=== PATIENT | female | born 1985 | race Caucasian/White ===

== ENCOUNTER 2019-11-13 20:09 | Inpatient (IN) | payer BC ==
[~2019-11-13 20:09] MED LIST: Bupivacaine 0.25% 10 ML SDV ONE
[2019-11-13] MEDS ORDERED: Ampicillin 2 GM in Sodium Chloride 0.9% 100 ML IV ONE (20:48)
[2019-11-13] MEDS ORDERED: Nalbuphine 10 MG/ML Syringe IVPUSH PRN (20:48)
[2019-11-13] MEDS ORDERED: Sodium Chloride 0.9% 10 ML Syringe FLUSH PRN (20:48)
[2019-11-13] MEDS ORDERED: Oxytocin/Lactated Ringers 10 UNIT/1,000 ML BAG IV SCH ×2 (21:00)
--- NOTE | 2019-11-13 21:28 | PCM.LDHP ---
L&D History of Present Illness - General Date of Service: 11/13/19 Admit Problem/Dx: Patient Status Order with Admit Dx/Problem 11/13/19 20:49 Patient Status [ADT] Routine Admission Diagnosis/Problem Admission Diagnosis/Problem 11/13/19 21:13 Wilda is a 34-year-old 7 para 312 4 white female with an estimated gestational age of 9-0/7 weeks with an LOUIS of 11/20/2019 was admitted to labor and delivery on the evening of 11/13/2019 in active labor with progressive cervical change. Source of Information: Patient History Limitations: Reports: No Limitations - History of Present Illness Introduction:: Wilda is a 34-year-old 7 para 312 4 white female with an estimated gestational age of 9-0/7 weeks with an LOUIS of 11/20/2019 was admitted to labor and delivery on the evening of 11/13/2019 in active labor with progressive cervical change. Membranes are intact. heart tones are reassuring. Contractions every 2-5 minutes. Cervix is made progressive change and is now presently 3 cm with the baby in a -3 station. Bag ferro is intact. 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 Her LOUIS is 11/20/2019 as based upon a LMP of 02/13/2019 and supported by 3 ultrasounds done on 03/31/2019, 2018 and 07/15/2019. Patient had normal menarche at approximately age 12. Cycles come on a fairly regular basis. Not using any control at the time conception. Past obstetric history includes the followin. Female infant born 02/17/2009 at 33 weeks gestational age after 26 hours of labor. 4 lbs. 11 oz. born via normal spontaneous vaginal deliveryhad epidural for labor analgesia. [facility] at [facility] in [place]. Patient had premature rupture membranes with that . Child's name is Mali. 2. Female infant born at 08/07/2010 at 38 weeks gestational age after 23 hours of labor. . Epidural for analgesia. Born in [place]. Child's name is Desire. 3. Female born at 09/02/2015 at 40 weeks gestational age after 30 hours of labor7 lbs. 13 oz.vacuum extraction delivery. Baby born in [place]. Child' s name is Magda. 4. Female infant born 09/11/2017 at 36-6/7 weeks gestational age after 24 hours of labor. weight is 7 lbs. 5 oz. Baby born via normal spontaneous vaginal delivery. Epidural for analgesia. Born in [place]. Child's name is Fidelia. 5. Miscarriage on 03/12/2018 at 10 weeks gestation with natural passage of . 6. Miscarriage on 08/19/2018 at 6 weeks gestational age with natural passage of . course: Patient's first visit was on 04/28/2019 at approximately 10 weeks gestational age. Weight gain was from 253.8 pounds to 284 pounds for approximately 30 pound increase. Vital signs remained stable throughout the course. Fundal height growth was somewhat ahead of schedule with a fundal height of 42 cm at last visit at 38 weeks. Patient had a group B strep positive test at the time of her first visit. She has history of anxiety. She declined genetic testing. She declines STI testing. [place] depression screening score on 07/25/2019 was 7/30. Risks include history of miscarriage 2, age of 34, obesity, term rupture membranes/ delivery. Patient desires epidural. She plans on breast-feeding. Immunization has included influenza vaccination on 08/22/2019 and T-dap immunization on 08/22. She is rubella immune. Laboratory testing and shows blood to be B+ with a negative and by screen. First hemoglobin was 12.7 g/dL. Platelets are 297,000. She is rubella immune. Urine culture showed group B strep positive status. Hepatitis B surface antigen and HIV assays were negative and declined respectively. Myringotomy acid both declined. Second trimester labs showed hemoglobin 11.4 g/ dL. Platelets are 275,000. Diabetic screening test was 84normal. Group B strep culture was positive. Allergies: 1. Seafood causes anaphylaxis 2. Adhesive tape 3. Mastisol adhesive ligament causes hives and rash Medications: 1. Aspirin 81 mg by mouth daily 2. vitamins daily Family history: Father and mother are alive and well. Patient has 3 sisters who are alive and well. Maternal grandmother is secondary to ovarian cancer at age 80. Maternal grandfather some with some type of cancer which is unknown to the patient. Paternal grandmother is alive and well. Paternal grandfather is secondary to stroke. No female cancers otherwise noted. No , anesthesia, bleeding or blood clotting problems noted in the family. Social history: The patient is . is Ishan Barahona. 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 She lives in [place] with her and family. She does not use any significant loss of alcohol, drugs or tobacco. She is a college graduate. Past medical history: 1. Vaginal delivery 4 with one vacuum extraction delivery and 1 delivery secondary to premature rupture of membranes. 2. History of anxiety. 3. Mildly abnormal Paps or 2015. 4. Basal cell carcinoma. Past surgical history: 1. Laparoscopic cholecystectomy 2. Jaw surgery 2002. Basal cell carcinoma removal. Review of systems: In general patient has no complaints. He is having contractions. Skin: Negative Lungs: No infectious symptoms or shortness of breath Cardiovascular: No chest pain or exercise intolerance Breasts: No lumps, changes in size, pain, dimpling, discharge or axillary or supraclavicular concerns. GI: Negative : Changes associated with . Musculoskeletal: Negative Neurological: Negative In general the patient is well-developed, well-nourished, pleasant female of stated age in no acute distress. Skin is warm dry without lesions. Vital signs on last evaluation in clinic show blood pressure 128/74, weight 284 pounds with pre weight 253.8 pounds. Height is 5 feet 5. Pregravid body mass index is 42.6. HEENT, neck and back within normal limits. Lungs are clear with good breath sounds in all lung sharp. Cardiovascular exam shows regular and rhythm without murmurs. Abdomen is 2 and last fundal height at 42 cm with baby in vertex presentation by Adan maneuvers. Genital exam per digital exam on last dilution clinic showed cervix to be 2 cm, 80% effaced, soft, mid position, -3 station. By nurse's evaluation this time the cervix is changed 3 cm but is still very high at -3+ or above station. Extremities and neurological exam are grossly within normal limits. - Related Data Allergies/Adverse Reactions: Allergies Allergy/AdvReac Type Severity Reaction Status Date / Time shellfish derived Allergy Anaphylactic Verified 09/11/16 01:56 Shock Home Medications: Home Meds PNV No.66/Iron,Carbonyl/FA/DHA [R- Ob Softgel] 1 tab PO DAILY 08/19/14 [ History] Docusate Sodium [Colace] 100 mg PO DAILY 04/11/16 [History] Doxylamine Succinate [Unisom] 25 mg PO BEDTIME 04/11/16 [History] Ondansetron HCl [Zofran] 4 mg PO Q6H PRN 04/11/16 [History] Ranitidine [Zantac] 150 mg PO DAILY 04/11/16 [History] Sertraline HCl 100 mg PO DAILY 04/11/16 [History] Vitamin B6-pyridOXINE 100 mg PO DAILY 04/11/16 [History] oxyCODONE HCl/Acetaminophen [Percocet 5-325 mg Tablet] 5 - 325 mg PO Q6H PRN 10/27 [History] Ibuprofen [IJD: Ibuprofen] 600 mg PO Q4H PRN #30 tablet 09/13/16 [Rx] Past Medical History HEENT History: Reports: Impaired Vision Other HEENT History: Wears glasses Cardiovascular History: Reports: None Respiratory History: Reports: Asthma, Other (See Below) Other Respiratory History: resolved at this time. Gastrointestinal History: Reports: Other (See Below) Other Gastrointestinal History: bloody stools Genitourinary History: Reports: Renal Calculus EMS DRIVER History: Reports: Dysfunctional Uterine Bleeding, Musculoskeletal History: Reports: Arthritis, Back Pain, Chronic Neurological History: Reports: None Psychiatric History: Reports: Anxiety Endocrine/Metabolic History: Reports: Obesity/BMI 30+ (BMI 47.3) Dermatologic History: Reports: Melanoma - Infectious Disease History Infectious Disease History: Reports: Chicken Pox - Past Surgical History HEENT Surgical History: Reports: Oral Surgery, Other (See Below) Social & Family History - Family History Family Medical History: Noncontributory - Caffeine Use Caffeine Use: Reports: Coffee, Soda Other Caffeine Use: average 1 caffeinated beverage per day H&P Review of Systems - Review of Systems: Review Of Systems: See Below L&D Exam - Exam Exam: See Below Problem List Initiated/Reviewed/Updated: Yes Orders Last 24hrs: Active Orders 24 hr Category Date Time Status Patient Status [ADT] Routine ADT 11/13/19 20:49 Active Activity as Tolerated [RC] PFP Care 11/13/19 20:48 Active Communication Order [RC] ASDIRECTED Care 11/13/19 20:48 Active Heart Tones [RC] ASDIRECTED Care 11/13/19 20:49 Active Non Stress Test [RC] PER UNIT ROUTINE Care 11/13/19 20:48 Active Notify Provider [RC] PFP Care 11/13/19 20:48 Active Notify Provider [RC] PRN Care 11/13/19 20:48 Active Peripheral IV Care [RC] . DIRECTED Care 11/13/19 20:49 Active Vital Signs [RC] PER UNIT ROUTINE Care 11/13/19 20:48 Active Regular Diet [DIET] Diet 11/13/19 Breakfast Active CBC WITH AUTO DIFF [HEME] Stat Lab 11/13/19 20:48 Ordered RAPID PLASMA REAGIN,RPR [CHEM] Stat Lab 11/13/19 20:48 Ordered Ampicillin 1 gm Med 11/14/19 01:00 Active Sodium Chloride 0.9% [Normal Saline] 100 ml IV Q4H Ampicillin 2 gm Med 11/13/19 20:48 Active Sodium Chloride 0.9% [Normal Saline] 100 ml IV ONETIME Lactated Ringers [Ringers, Lactated] 1,000 ml Med 11/13/19 21:00 Active IV ASDIRECTED Nalbuphine [Nubain] Med 11/13/19 20:48 Active 10 mg IVPUSH Q2H PRN Oxytocin/Lactated Ringers [Pitocin in LR 10 Units/1,000 Med 11/13/19 21:00 Active ML] 10 unit in 1,000 ml IV .CONTINUOUS Oxytocin/Lactated Ringers [Pitocin in LR 10 Units/1,000 Med 11/13/19 21:00 Active ML] 10 unit in 1,000 ml IV TITRATE Sodium Chloride 0.9% [Saline Flush] Med 11/13/19 20:48 Active 10 ml FLUSH ASDIRECTED PRN Electronic Heart Tones Ext w TOCO [WOMSER] Oth 11/13/19 20:48 Ordered Routine Electronic Heart Tones Internal [WOMSER] Per Unit Oth 11/13/19 20:48 Ordered Routine Peripheral IV Insertion Adult [OM.PC] Routine Oth 11/13/19 20:48 Ordered Resuscitation Status Routine Resus Stat 11/13/19 20:48 Ordered Medication Orders Ampicillin Sodium 2 gm/ Sodium (Chloride) 100 mls @ 200 mls/hr IV ONETIME ONE Stop: 11/13/19 21:17 Ampicillin Sodium 1 gm/ Sodium (Chloride) 100 mls @ 200 mls/hr IV Q4H IMER Lactated Ringer's (Ringers, Lactated) 1,000 mls @ 100 mls/hr IV ASDIRECTED IMER Oxytocin/Lactated Ringer's (Pitocin In Lr 10 Units/1,000 Ml) 10 unit in 1,000 mls @ 12 mls/hr IV TITRATE IMER; Protocol Oxytocin/Lactated Ringer's (Pitocin In Lr 10 Units/1,000 Ml) 10 unit in 1,000 mls @ 500 mls/hr IV .CONTINUOUS IMER Nalbuphine HCl (Nubain) 10 mg IVPUSH Q2H PRN PRN Reason: Pain Sodium Chloride (Saline Flush) 10 ml FLUSH ASDIRECTED PRN PRN Reason: Keep Vein Open Assessment/Plan Comment:: 1. 39-0/7 week intrauterine , early active labor with progressive cervical change. 2. Group B strep positive status per urine culture in 3. History risk factors for the include the following: History of rupture membranes and delivery at 34 weeks, obesity, history of group B strep positive status, history of urge 2. 4. Rubella status is positive. Patient is received her T Dap and her influenza immunization on 08/22/2019. 4. Patient desiring epidural in labor 5. Patient plans to breast-feed. Plan: 1. Monitor labor and address progressive change. If able to rupture membranes a later time we'll do so. 2. Group B strep prophylaxis with ampicillin per protocol. 3. Support breast-feeding decision 4. Epidural when necessary patient in labor 5. CBC and RPR upon admission.
[2019-11-13] MEDS: Lactated Ringers 1,000 ML IV SCH ×2 (22:02→23:47)
[2019-11-13] MEDS ORDERED: fentaNYL 100 MCG/2 ML SDV EPIDUR PRN (23:39)
[2019-11-13] MEDS ORDERED: Bupivacaine/fentaNYL/NS 100 ML Bag EPIDUR PRN (23:39)
[2019-11-13] MEDS ORDERED: diphenhydrAMINE 50 MG/ML SDV IVPUSH PRN (23:39)
[2019-11-13] MEDS ORDERED: ePHEDrine 50 MG/ML SDV IVPUSH PRN (23:39)
--- NOTE | 2019-11-14 00:12 | PCM.PREANE ---
Preanesthetic Assessment - Procedure Proposed Procedure: epidural - Anesthesia/Transfusion/Family Hx Anesthesia History: Prior Anesthesia Without Reaction Family History of Anesthesia Reaction: No Transfusion History: No Prior Transfusion(s) - Review of Systems General: No Symptoms Pulmonary: No Symptoms Cardiovascular: No Symptoms Gastrointestinal: Abdominal Pain (labor) Neurological: Numbness (bilateral wrists - hands) Other: Reports: None - Physical Assessment Vital Signs: Last Vital Signs Temp 36.8 C 11/13/19 20:37 Pulse 74 11/13/19 20:37 Resp 18 11/13/19 20:37 BP 147/77 H 11/13/19 20:37 Pulse Ox 99 11/13/19 20:37 Height: 1.65 m Weight: 131.088 kg ASA Class: 2 Mental Status: Alert & Oriented x3 Airway Class: Mallampati = 2 Dentition: Reports: Normal Dentition Thyro-Mental Finger Breadths: 2 Mouth Opening Finger Breadths: 2 ROM/Head Extension: Full Lungs: Clear to Auscultation, Normal Respiratory Effort Cardiovascular: Regular Rate, Regular Rhythm - Lab Values: Laboratory Last Values WBC 10.76 K/mm3 (3.98-10.04) H 11/13/19 21:20 RBC 4.06 M/mm3 (3.98-5.22) 11/13/19 21:20 Hgb 11.6 gm/dl (11.2-15.7) 11/13/19 21:20 Hct 35.8 % (34.1-44.9) 11/13/19 21:20 MCV 88.2 fl (79.4-94.8) 11/13/19 21:20 MCH 28.6 pg (25.6-32.2) 11/13/19 21:20 MCHC 32.4 g/dl (32.2-35.5) 11/13/19 21:20 RDW Std Deviation 44.2 fL (36.4-46.3) 11/13/19 21:20 Plt Count 225 K/mm3 (182-369) 11/13/19 21:20 MPV 10.9 fl (9.4-12.3) 11/13/19 21:20 Neut % (Auto) 68.4 % (34.0-71.1) 11/13/19 21:20 Lymph % (Auto) 23.0 % (19.3-51.7) 11/13/19 21:20 Banks % (Auto) 7.3 % (4.7-12.5) 11/13/19 21:20 Eos % (Auto) 0.8 (0.7-5.8) 11/13/19 21:20 Baso % (Auto) 0.1 % (0.1-1.2) 11/13/19 21:20 Neut # (Auto) 7.36 K/mm3 (1.56-6.13) H 11/13/19 21:20 Lymph # (Auto) 2.47 K/mm3 (1.18-3.74) 11/13/19 21:20 Banks # (Auto) 0.79 K/mm3 (0.24-0.36) H 11/13/19 21:20 Eos # (Auto) 0.09 K/mm3 (0.04-0.36) 11/13/19 21:20 Baso # (Auto) 0.01 K/mm3 (0.01-0.08) 11/13/19 21:20 RPR Non-reactive (NONREACTIVE) 11/13/19 21:20 - Allergies Allergies/Adverse Reactions: Allergies Allergy/AdvReac Type Severity Reaction Status Date / Time shellfish derived Allergy Anaphylactic Verified 09/11/16 01:56 Shock - Anesthesia Plan Pre-Op Medication Ordered: None - Acknowledgements Anesthesia Type Planned: Epidural Pt an Appropriate Candidate for the Planned Anesthesia: Yes Alternatives and Risks of Anesthesia Discussed w Pt/Guardian: Yes Pt/Guardian Understands and Agrees with Anesthesia Plan: Yes PreAnesthesia Questionnaire HEENT History: Reports: Impaired Vision Other HEENT History: Wears glasses Cardiovascular History: Reports: None Respiratory History: Reports: Asthma, Other (See Below) Other Respiratory History: resolved at this time. 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: Reports: Dysfunctional Uterine Bleeding, Musculoskeletal History: Reports: Arthritis, Back Pain, Chronic Neurological History: Reports: None Psychiatric History: Reports: Anxiety Endocrine/Metabolic History: Reports: Obesity/BMI 30+ (BMI 47.3) Dermatologic History: Reports: Melanoma - Infectious Disease History Infectious Disease History: Reports: Chicken Pox - Past Surgical History HEENT Surgical History: Reports: Oral Surgery, Other (See Below) - SUBSTANCE USE Smoking Status *Q: Never Smoker Second Hand Smoke Exposure: No Recreational Drug Use History: No - HOME MEDS Home Medications: Home Meds PNV No.66/Iron,Carbonyl/FA/DHA [R- Ob Softgel] 1 tab PO DAILY 08/19/14 [ History] Docusate Sodium [Colace] 100 mg PO DAILY 04/11/16 [History] Doxylamine Succinate [Unisom] 25 mg PO BEDTIME 04/11/16 [History] Ondansetron HCl [Zofran] 4 mg PO Q6H PRN 04/11/16 [History] Ranitidine [Zantac] 150 mg PO DAILY 04/11/16 [History] Sertraline HCl 100 mg PO DAILY 04/11/16 [History] Vitamin B6-pyridOXINE 100 mg PO DAILY 04/11/16 [History] oxyCODONE HCl/Acetaminophen [Percocet 5-325 mg Tablet] 5 - 325 mg PO Q6H PRN 10/27 [History] Ibuprofen [IJD: Ibuprofen] 600 mg PO Q4H PRN #30 tablet 09/13/16 [Rx] - CURRENT (IN HOUSE) MEDS Current Meds: Current Medications Diphenhydramine HCl (Benadryl) 25 mg IVPUSH Q6H PRN PRN Reason: Itching Ephedrine Sulfate (Ephedrine Sulfate) 5 mg IVPUSH ASDIRECTED PRN PRN Reason: HYPOTENTSION Fentanyl (Sublimaze) 100 mcg EPIDUR Q3H PRN PRN Reason: Pain Last Admin: 11/13/19 23:48 Dose: 100 mcg Fentanyl/Bupivacaine HCl (Fentanyl/Bupivacaine/Ns 2 Mcg-0.125% 100 Ml) 1 ml EPIDUR CONTINUOUS PRN PRN Reason: Pain Last Admin: 11/13/19 23:53 Dose: 100 ml Ampicillin Sodium 1 gm/ Sodium (Chloride) 100 mls @ 200 mls/hr IV Q4H IMER Lactated Ringer's (Ringers, Lactated) 1,000 mls @ 100 mls/hr IV ASDIRECTED IMER Last Admin: 11/13/19 23:47 Dose: 100 mls/hr Oxytocin/Lactated Ringer's (Pitocin In Lr 10 Units/1,000 Ml) 10 unit in 1,000 mls @ 12 mls/hr IV TITRATE IMER; Protocol Oxytocin/Lactated Ringer's (Pitocin In Lr 10 Units/1,000 Ml) 10 unit in 1,000 mls @ 500 mls/hr IV .CONTINUOUS IMER Nalbuphine HCl (Nubain) 10 mg IVPUSH Q2H PRN PRN Reason: Pain Sodium Chloride (Saline Flush) 10 ml FLUSH ASDIRECTED PRN PRN Reason: Keep Vein Open Discontinued Medications Ampicillin Sodium 2 gm/ Sodium (Chloride) 100 mls @ 200 mls/hr IV ONETIME ONE Stop: 11/13/19 21:17 Last Admin: 11/13/19 22:03 Dose: 200 mls/hr
[2019-11-14] MEDS ORDERED: Ampicillin 1 GM in Sodium Chloride 0.9% 100 ML IV SCH (01:00)
[2019-11-14] MEDS: Ampicillin 1 GM in Sodium Chloride 0.9% 100 ML IV SCH ×3 (02:09→13:46)
[2019-11-14] MEDS: Lactated Ringers 1,000 ML IV SCH ×2 (02:10→06:37)
--- NOTE | 2019-11-14 09:18 | PCM.SN ---
- Free Text/Narrative Note: Wilda is a 34-year-old 7 para 312 4 white female with an estimated gestational age of 9-0/7 weeks with an LOUIS of 11/20/2019 was admitted to labor and delivery on the evening of 11/13/2019 in active labor with progressive cervical change. Patient achieved complete cervical dilation by approximately 0745 hrs. on 11/14/2019. She pushed until approximately 0757 hrs. at which time she delivered a viable, powers, female with Apgars of 9 and 9, weight 3680 g (8 pounds 1.8 ounces), a length 21 inches in a direct occiput posterior position.The delivery time was 0757 hrs. on 11/14/2019. Baby's nose and mouth were bulb suctioned and baby was placed on mom's abdomen. Pitocin was increased to facilitate an increase uterine tone and decrease likelihood of bleeding. A first-degree perineal laceration was repaired with a single [id number] suture. Epidural analgesia was used for perineal anesthesia for the repair. Patient tolerated this well area Cord blood was obtained. The umbilical cord had 3 vessels present within it. The placenta delivered at 0802 hrs. in a Hanks presentation, appeared intact and complete and was discarded per patient desire. Estimated blood loss was 200 mL. Patient plans to breast-feed. Condition: Good.
[2019-11-14] MEDS ORDERED: Acetaminophen 325 MG Tab PO PRN (10:50)
[2019-11-14] MEDS ORDERED: Witch Hazel Medicated Pads 40/Jar TOP PRN (10:50)
[2019-11-14] MEDS ORDERED: Benzocaine/Menthol 20%-0.5% Spray 56 GM Canister TOP PRN (10:50)
[2019-11-14] MEDS: Ibuprofen 600 MG Tab PO PRN ×3 (10:58→20:22)
[2019-11-14] MEDS: Docusate Sodium 100 MG Cap PO PRN (10:58)
[2019-11-15] MEDS: Docusate Sodium 100 MG Cap PO PRN ×2 (03:17→14:35)
[2019-11-15] MEDS: Ibuprofen 600 MG Tab PO PRN ×3 (03:17→14:32)
--- NOTE | 2019-11-15 07:54 | PCM48HPAN ---
Post Anesthesia Note - EVALUATION WITHIN 48HRS OF ANESTHETIC Vital Signs in Normal Range: Yes Patient Participated in Evaluation: Yes Respiratory Function Stable: Yes Airway Patent: Yes Cardiovascular Function Stable: Yes Hydration Status Stable: Yes Pain Control Satisfactory: Yes Nausea and Vomiting Control Satisfactory: Yes Mental Status Recovered: Yes Vital Signs: Last Vital Signs Temp 36.3 C 11/15/19 03:10 Pulse 70 11/15/19 03:10 Resp 15 11/15/19 03:10 BP 133/84 11/15/19 03:10 Pulse Ox 97 11/15/19 03:10
[2019-11-15] MEDS ORDERED: Prenatal Multivitamin with Calcium/Folic Acid/Iron Tab PO SCH (09:00)
--- NOTE | 2019-11-15 09:19 | PCM.DCSUM1 ---
Discharge Summary - Hospital Course Free Text/Narrative:: Wilda is a 34-year-old 7 para 312 4 white female with an estimated gestational age of 9-0/7 weeks with an LOUIS of 11/20/2019 was admitted to labor and delivery on the evening of 11/13/2019 in active labor with progressive cervical change. Patient achieved complete cervical dilation by approximately 0745 hrs. on 11/14/2019. She pushed until approximately 0757 hrs. at which time she delivered a viable, powers, female infant with Apgars of 9 and 9, weight 3680 g (8 pounds 1.8 ounces), a length 21 inches in a direct occiput posterior position.The delivery time was 0757 hrs. on 11/14/2019. Baby's nose and mouth were bulb suctioned and baby was placed on mom's abdomen. Pitocin was increased to facilitate an increase uterine tone and decrease likelihood of bleeding. A first-degree perineal laceration was repaired with a single [id number] suture. Epidural analgesia was used for perineal anesthesia for the repair. Patient tolerated this well area Cord blood was obtained. The umbilical cord had 3 vessels present within it. The placenta delivered at 0802 hrs. in a Hanks presentation, appeared intact and complete and was discarded per patient desire. Estimated blood loss was 200 mL. Patient plans to breast-feed. Postterm patient has done well. She is voiding without problems, has minimal lochia, is ambulating without concerns. She is desiring discharge home. Condition: Good. Diagnosis: Stroke: No - Discharge Data Discharge Date: 11/15/19 Discharge Disposition: Home, Self-Care 01 Condition: Good - Referral to Home Health Primary Care Physician: Bogdan Arriola MD - Patient Instructions Diet: Regular Diet as Tolerated (Nursing diet with increased calories and calcium as recommended) Activity: As Tolerated (No intercourse or tampons until bleeding resolves) Driving: May Drive Today Showering/Bathing: May Shower (May take a bath) Notify Provider of: Fever, Increased Pain, Swelling and Redness, Nausea and/or Vomiting - Discharge Plan Home Medications: Home Meds PNV No.66/Iron,Carbonyl/FA/DHA [R-Akash Ob Softgel] 1 tab PO DAILY 08/19/14 [ History] Acetaminophen [Tylenol] 650 mg PO Q4H PRN tablet 11/15/19 [Rx] Ibuprofen [Motrin] 600 mg PO Q4H PRN tablet 11/15/19 [Rx] Referrals: Bogdan Arriola MD [Primary Care Provider] - (Return to clinicDr. Arriola or Diane brock, nurse practitioner-2 weeks.) - Discharge Summary/Plan Comment DC Time >30 min.: No Discharge Summary/Plan Comment: Discharge instructions: 1. Discharge home 2. Diet, activity and follow-up discussed with patient. Recommend nursing diet with increased calories and calcium. 3. Precautions given concern increased pain, bleeding, temperature, signs/ symptoms of DVT/PE. 4. Medications per home medication was printed, discussed with and given to the patient. 5. Return to clinic-Dr. Arriola[facility] in 2 weeks. Diagnosis: Term -delivered Condition: Good - Patient Data Vitals - Most Recent: Last Vital Signs Temp 36.3 C 11/15/19 03:10 Pulse 70 11/15/19 03:10 Resp 15 11/15/19 03:10 BP 133/84 11/15/19 03:10 Pulse Ox 97 11/15/19 03:10 Weight - Most Recent: 131.088 kg I&O - Last 24 hours: Intake & Output 11/14/19 11/15/19 11/15/19 22:59 06:59 14:59 Intake Total 751 Balance 751 Med Orders - Current: Current Medications Acetaminophen (Tylenol) 650 mg PO Q4H PRN PRN Reason: mild pain or fever Benzocaine/Menthol (Dermoplast Pain Relief [place]) 0 gm TOP ASDIRECTED PRN PRN Reason: Perineal Comfort Measure Last Admin: 11/14/19 11:00 Dose: 1 can Docusate Sodium (Colace) 100 mg PO BID PRN PRN Reason: Constipation Last Admin: 11/15/19 03:17 Dose: 100 mg Ibuprofen (Motrin) 600 mg PO Q4H PRN PRN Reason: Mild pain or fever Last Admin: 11/15/19 09:08 Dose: 600 mg Prenat Multivit/Breaker Unit Assembler/Iron/Folic Ac ( Plus Iron) 1 each PO DAILY IMER Last Admin: 11/15/19 09:08 Dose: 1 each Wojciech Ferguson (Jimcks) 1 pad TOP ASDIRECTED PRN PRN Reason: Pain Last Admin: 11/14/19 11:00 Dose: 1 container Discontinued Medications Diphenhydramine HCl (Benadryl) 25 mg IVPUSH Q6H PRN PRN Reason: Itching Last Admin: 11/14/19 04:23 Dose: 25 mg Ephedrine Sulfate (Ephedrine Sulfate) 5 mg IVPUSH ASDIRECTED PRN PRN Reason: HYPOTENTSION Fentanyl (Sublimaze) 100 mcg EPIDUR Q3H PRN PRN Reason: Pain Last Admin: 11/13/19 23:48 Dose: 100 mcg Fentanyl/Bupivacaine HCl (Fentanyl/Bupivacaine/Ns 2 Mcg-0.125% 100 Ml) 1 ml EPIDUR CONTINUOUS PRN PRN Reason: Pain Last Admin: 11/13/19 23:53 Dose: 100 ml Ampicillin Sodium 2 gm/ Sodium (Chloride) 100 mls @ 200 mls/hr IV ONETIME ONE Stop: 11/13/19 21:17 Last Admin: 11/13/19 22:03 Dose: 200 mls/hr Ampicillin Sodium 1 gm/ Sodium (Chloride) 100 mls @ 200 mls/hr IV Q4H IMER Last Admin: 11/14/19 13:46 Dose: Not Given Lactated Ringer's (Ringers, Lactated) 1,000 mls @ 100 mls/hr IV ASDIRECTED IMER Last Admin: 11/14/19 06:37 Dose: 100 mls/hr Oxytocin/Lactated Ringer's (Pitocin In Lr 10 Units/1,000 Ml) 10 unit in 1,000 mls @ 12 mls/hr IV TITRATE IMER; Protocol Last Titration: 11/14/19 07:58 Dose: 999 mls/hr Oxytocin/Lactated Ringer's (Pitocin In Lr 10 Units/1,000 Ml) 10 unit in 1,000 mls @ 500 mls/hr IV .CONTINUOUS IMER Ampicillin Sodium 1 gm/ Sodium (Chloride) 100 mls @ 200 mls/hr IV Q4H IMER Last Admin: 11/14/19 13:46 Dose: Not Given Nalbuphine HCl (Nubain) 10 mg IVPUSH Q2H PRN PRN Reason: Pain Sodium Chloride (Saline Flush) 10 ml FLUSH ASDIRECTED PRN PRN Reason: Keep Vein Open
[2019-11-15 10:48] VITALS: BP 128/90; PULSE 88
== END 2019-11-15 15:25 | disposition home or self-care (01) | DRG 560 ==
LOC: JD.OBCHECK 20:09 → JD.OB 20:09 → JD.OBCHECK 20:48 → JD.OB 20:49 → OBSVTOIN 11-14 07:57 → JD.OB 11-14 07:58
PROVIDERS: ADMIT Obstetrics & Gynecology; ATTEND Obstetrics & Gynecology
PROC: 10E0XZZ Delivery of Products of Conception, External Approach (ICD-10-PCS; principal; 2019-11-14)
PROC: 0HQ9XZZ Repair Perineum Skin, External Approach (ICD-10-PCS; 2019-11-14)
PROC: 3E0R3BZ Introduction of Anesthetic Agent into Spinal Canal, Percutaneous Approach (ICD-10-PCS; 2019-11-14)
DX: O99.824 Streptococcus B carrier state complicating childbirth (principal); O99.344 Other mental disorders complicating childbirth; F41.9 Anxiety disorder, unspecified; M54.9 Dorsalgia, unspecified; G89.29 Other chronic pain; O70.0 First degree perineal laceration during delivery; O99.214 Obesity complicating childbirth; E66.9 Obesity, unspecified; Z85.820 Personal history of malignant melanoma of skin; Z3A.39 39 weeks gestation of pregnancy; Z88.8 Allergy status to other drugs, medicaments and biological substances; Z91.013 Allergy to seafood; Z79.82 Long term (current) use of aspirin; Z79.899 Other long term (current) drug therapy; Z37.0 Single live birth; Z90.49 Acquired absence of other specified parts of digestive tract
CPT/HCPCS: 01967; 36415; 51701; 51702; 59025; 59409; 85025; 86592; A9270-GY; J0290; J1200; J2590; J3010; J3490; J7050; J7120

== ENCOUNTER → 2020-08-23 | Day surgery (SDC) | payer BC ==
[~2020-08-23] MED LIST changes: +HYDROmorphone 0.5 MG/0.5 ML Syringe IVPUSH PRN; +Lactated Ringers 1,000 ML IV SCH; +Lidocaine 1% 30 ML SDV ONE; +Lidocaine 1% 4 ML ONE; +Lidocaine 1%/Sod Bicarbonate in NS 8.4% 1 ML Syringe IDERM PRN; +Midazolam 1 MG/ML 2 ML SDV ONE; +Ondansetron 4 MG/2 ML SDV IVPUSH PRN; +Ondansetron 4 MG/2 ML SDV ONE; +Propofol 200 MG/20 ML SDV ONE; +Sodium Chloride 0.9% 10 ML Syringe FLUSH PRN; +ePHEDrine 50 MG/ML SDV IVPUSH PRN; +fentaNYL 100 MCG/2 ML SDV IVPUSH PRN; +fentaNYL 100 MCG/2 ML SDV ONE
--- NOTE | 2020-08-23 09:26 | PCM.PREANE ---
Preanesthetic Assessment - Procedure Proposed Procedure: Left carpal tunnel release - Anesthesia/Transfusion/Family Hx Anesthesia History: Prior Anesthesia Without Reaction Family History of Anesthesia Reaction: No Transfusion History: No Prior Transfusion(s) - Review of Systems General: No Symptoms Pulmonary: No Symptoms, Other (asthma not used inhaler for "a very long time") Cardiovascular: No Symptoms Gastrointestinal: No Symptoms Neurological: Numbness (carpal tunnel) Other: Reports: None - Physical Assessment NPO Status Date: 08/22/20 NPO Status Time: 00:00 Height: 1.68 m Weight: 119.4 kg ASA Class: 2 Mental Status: Alert & Oriented x3 Airway Class: Mallampati = 1 Dentition: Reports: Normal Dentition, [place](s) Thyro-Mental Finger Breadths: 3 Mouth Opening Finger Breadths: 3 ROM/Head Extension: Full Lungs: Clear to Auscultation, Normal Respiratory Effort Cardiovascular: Regular Rate, Regular Rhythm - Lab Values: Laboratory Last Values MRSA (PCR) Negative 08/15/20 14:16 - Allergies Allergies/Adverse Reactions: Allergies Allergy/AdvReac Type Severity Reaction Status Date / Time adhesive Allergy Rash Verified 08/22/20 14:34 alcohol Allergy Rash Verified 08/22/20 14:34 [From Mastisol Adhesive] gum mastic Allergy Rash Verified 08/22/20 14:34 [From Mastisol Adhesive] methyl salicylate Allergy Rash Verified 08/22/20 14:34 [From Mastisol Adhesive] shellfish derived Allergy Anaphylactic Verified 08/22/20 14:34 Shock storax Allergy Rash Verified 08/22/20 14:34 [From Mastisol Adhesive] - Blood Blood Available: No Product(s) Available: None - Anesthesia Plan Pre-Op Medication Ordered: None - Acknowledgements Anesthesia Type Planned: MAC Pt an Appropriate Candidate for the Planned Anesthesia: Yes Alternatives and Risks of Anesthesia Discussed w Pt/Guardian: Yes Pt/Guardian Understands and Agrees with Anesthesia Plan: Yes PreAnesthesia Questionnaire HEENT History: Reports: Impaired Vision, Sinusitis Other HEENT History: Wears glasses, infected tooth, jaw surgery Cardiovascular History: Reports: Hypertension Respiratory History: Reports: Asthma, Other (See Below) Other Respiratory History: cough, bronchitis, asthma Gastrointestinal History: Reports: Chronic Diarrhea, GERD, Other (See Below) Other Gastrointestinal History: bloody stools Genitourinary History: Reports: Renal Calculus, Other (See Below) Other Genitourinary History: proteinuria 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: Dysfunctional Uterine Bleeding, , Spontaneous , Other (See Below) Other OB/BYN History: breast lump, amniotic fluid leaking, breast pain, , dysmenorrhea, placenta previa Musculoskeletal History: Reports: Arthritis, Back Pain, Chronic Neurological History: Reports: None Psychiatric History: Reports: Anxiety Endocrine/Metabolic History: Reports: Obesity/BMI 30+, Other (See Below) Other Endocrine/Metabolic History: low serum progesterone Hematologic History: Reports: None Immunologic History: Reports: None Oncologic (Cancer) History: Reports: Basal Cell Carcinoma Dermatologic History: Reports: Melanoma - Infectious Disease History Infectious Disease History: Reports: None - Past Surgical History Head Surgeries/Procedures: Reports: None HEENT Surgical History: Reports: Oral Surgery, Other (See Below) Other HEENT Surgeries/Procedures: wisdom teeth removed 1999 Cardiovascular Surgical History: Reports: None Respiratory Surgical History: Reports: None GI Surgical History: Reports: Cholecystectomy, Colonoscopy Other GI Surgeries/Procedures: 04/2016 Female Surgical History: Reports: None Male Surgical History: Reports: None Endocrine Surgical History: Reports: None Neurological Surgical History: Reports: None Musculoskeletal Surgical History: Reports: None Oncologic Surgical History: Reports: None Dermatological Surgical History: Reports: None - SUBSTANCE USE Tobacco Use Status *Q: Never Tobacco User Tobacco Use Within Last Twelve Months: No Second Hand Smoke Exposure: No Days Per Week of Alcohol Use: 1 Number of Drinks Per Day: 0 Total Drinks Per Week: 0 Recreational Drug Use History: No - HOME MEDS Home Medications: Home Meds PNV No.66/Iron,Carbonyl/FA/DHA [R-Akash Ob Softgel] 1 tab PO DAILY 08/19/14 [History] Lactobacillus Combo No.10 [Probiotic] 1 cap PO DAILY 08/22/20 [History] Sertraline HCl [Zoloft] 100 mg PO DAILY 08/22/20 [History] Acetaminophen/HYDROcodone [Tyler 325-5 MG] 1 - 2 tab PO Q6H PRN #4 tablet 08/23/20 [Rx] Ibuprofen 600 mg PO TID PRN #10 tablet 08/23/20 [Rx] - CURRENT (IN HOUSE) MEDS Current Meds: Current Medications Lactated Ringer's (Ringers, Lactated) 1,000 mls @ 125 mls/hr IV ASDIRECTED IMER Stop: 08/23/20 23:00 Lidocaine/Sodium Bicarbonate (Buffered Lidocaine 1% In Ns 8.4%) 0.25 ml IDERM ONETIME PRN PRN Reason: Prior to IV Start Stop: 08/23/20 23:00 Sodium Chloride (Saline Flush) 10 ml FLUSH ASDIRECTED PRN PRN Reason: Keep Vein Open Stop: 08/23/20 23:00 Discontinued Medications Fentanyl (Sublimaze) Confirm Administered Dose 100 mcg .ROUTE .STK-MED ONE Stop: 08/23/20 05:57 Lidocaine HCl (Xylocaine-Mpf 1%) Confirm Administered Dose 4 mls @ as directed .ROUTE .STK-MED ONE Stop: 08/23/20 05:57 Midazolam HCl (Versed 1 Mg/Ml) Confirm Administered Dose 2 mg .ROUTE .STK-MED ONE Stop: 08/23/20 05:58 Ondansetron HCl (Zofran) Confirm Administered Dose 4 mg .ROUTE .STK-MED ONE Stop: 08/23/20 05:57 Propofol (Diprivan 20 Ml) Confirm Administered Dose 200 mg .ROUTE .STK-MED ONE Stop: 08/23/20 05:57
--- NOTE | 2020-08-23 11:23 | PCM48HPAN ---
Post Anesthesia Note - EVALUATION WITHIN 48HRS OF ANESTHETIC Vital Signs in Normal Range: Yes Patient Participated in Evaluation: Yes Respiratory Function Stable: Yes Airway Patent: Yes Cardiovascular Function Stable: Yes Hydration Status Stable: Yes Pain Control Satisfactory: Yes Nausea and Vomiting Control Satisfactory: Yes Mental Status Recovered: Yes Vital Signs: Last Vital Signs Temp 36.9 C 08/23/20 09:10 Pulse 83 08/23/20 09:10 Resp 16 08/23/20 09:10 BP 131/86 08/23/20 09:10 Pulse Ox 98 08/23/20 09:10
[2020-08-23 12:29] VITALS: BP 115/73; PULSE 67
--- NOTE | 2020-09-05 15:53 | PCM.OPNOTE ---
- General Post-Op/Procedure Note Date of Surgery/Procedure: 08/23/20 Operative Procedure(s): left carpal tunnel release Pre Op Diagnosis: left median nerve compression neuropathy Post-Op Diagnosis: Same Anesthesia Technique: Local, MAC Primary Surgeon: Guanako Monsalve Anesthesia Provider: Luis Lopez Enterprise Systems Engineer: Zeinab Rebolledo EBL in mLs: 5 Complications: None Condition: Good
--- NOTE | 2020-09-06 14:05 | OR ---
DATE OF OPERATION: 08/23/2020 SURGEON: Guanako Monsalve MD OPERATION PERFORMED: Left carpal tunnel release. PREOPERATIVE DIAGNOSIS: Left median nerve compression neuropathy. POSTOPERATIVE DIAGNOSIS: Left median nerve compression neuropathy. ANESTHESIA: Local MAC. ANESTHESIA PROVIDER: Luis Lopez CRNA RN DOCUMENT IMPROVEMENT: Zeinab Rebolledo PA-C ESTIMATED BLOOD LOSS: Less than 5 mL. COMPLICATIONS: None. CONDITION: Stable. DESCRIPTION OF PROCEDURE: The patient was identified in the preop holding area. Proper site was marked and identified by the surgeon. The patient was taken back to the operating theater where after adequate anesthesia, the patient's left upper extremity was sterilely prepped and draped in the usual sterile fashion. OR time-out was performed. The patient did not receive antibiotics and it is not indicated for soft tissue hand procedure. At this time, the left upper extremity was exsanguinated and an Esmarch was used as a tourniquet on the forearm. At this time, using 1% lidocaine without epinephrine and 0.25% Marcaine without epinephrine, the palmar cutaneous branch of the median nerve was anesthetized and then the incisional site was anesthetized using Cardenas cardinal line and ulnar border of the fourth digit as reference. Once this had set up, an incision was made. Blunt dissection was taken down to the palmar cutaneous fascia. Palmar cutaneous fascia was incised with a [place] blade. At this time, the transverse carpal ligament was identified. A small rent was made in the transverse carpal ligament with a [place] blade under direct visualization. Resection of the transverse carpal ligament was done distally using tenotomy scissors making sure to stop short of the palmar arch. At this time, attention was turned proximally after it was found to be adequately released. Using the tenotomy scissors keeping the tips ulnar to protect the palmar cutaneous branch of the median nerve, the superficial forearm fascia as well as the transverse carpal ligament were resected proximally. It was found to be adequate release both proximally and distally. At this time, adequate saline was irrigated through the wound. 4-0 nylon sutures were used closure of the skin. The patient was placed in a sterile soft dressing and sent to PACU in stable condition. MMODAL /[id number]
== END | disposition home or self-care (01) ==
LOC: JD.SDS 09:13
PROVIDERS: ATTEND Orthopaedic Surgery
DX: G56.12 Other lesions of median nerve, left upper limb (principal); G56.03 Carpal tunnel syndrome, bilateral upper limbs; F41.9 Anxiety disorder, unspecified; I10 Essential (primary) hypertension; J45.909 Unspecified asthma, uncomplicated; E66.01 Morbid (severe) obesity due to excess calories; Z91.048 Other nonmedicinal substance allergy status; Z98.890 Other specified postprocedural states; Z68.41 Body mass index [BMI] 40.0-44.9, adult; Z91.013 Allergy to seafood; Z88.8 Allergy status to other drugs, medicaments and biological substances
CPT/HCPCS: 64721; 81025; 87641; J2001; J2250; J2405; J2704; J3010; J3490; J7120; 01810

== ENCOUNTER 2020-09-20 08:22 | Day surgery (SDC) | payer BC ==
[~2020-09-20 08:22] MED LIST changes: -Bupivacaine 0.25% 10 ML SDV ONE; -HYDROmorphone 0.5 MG/0.5 ML Syringe IVPUSH PRN; -Lidocaine 1% 30 ML SDV ONE; -Lidocaine 1% 4 ML ONE; -Midazolam 1 MG/ML 2 ML SDV ONE; -Ondansetron 4 MG/2 ML SDV IVPUSH PRN; -Ondansetron 4 MG/2 ML SDV ONE; -Propofol 200 MG/20 ML SDV ONE; -ePHEDrine 50 MG/ML SDV IVPUSH PRN; -fentaNYL 100 MCG/2 ML SDV IVPUSH PRN; -fentaNYL 100 MCG/2 ML SDV ONE
[2020-09-20] MEDS ORDERED: Propofol 200 MG/20 ML SDV ONE (08:34)
[2020-09-20] MEDS ORDERED: Ondansetron 4 MG/2 ML SDV ONE (08:34)
[2020-09-20] MEDS ORDERED: Lidocaine 1% 4 ML ONE (08:35)
[2020-09-20] MEDS ORDERED: fentaNYL 100 MCG/2 ML SDV ONE (08:35)
[2020-09-20] MEDS ORDERED: Midazolam 1 MG/ML 2 ML SDV ONE (08:35)
[2020-09-20] MEDS ORDERED: Bupivacaine 0.25% 10 ML SDV ONE (08:52)
[2020-09-20] MEDS ORDERED: Lidocaine 1% 30 ML SDV ONE (08:52)
[2020-09-20] MEDS ORDERED: Ketorolac 15 MG/ML SDV ONE (09:33)
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
[2020-09-20 11:45] VITALS: BP 110/73; PULSE 74
--- NOTE | 2020-09-20 12:14 | PCM48HPAN ---
Post Anesthesia Note - EVALUATION WITHIN 48HRS OF ANESTHETIC Vital Signs in Normal Range: Yes Patient Participated in Evaluation: Yes Respiratory Function Stable: Yes Airway Patent: Yes Cardiovascular Function Stable: Yes Hydration Status Stable: Yes Pain Control Satisfactory: Yes Nausea and Vomiting Control Satisfactory: Yes Mental Status Recovered: Yes Vital Signs: Last Vital Signs Temp 36.8 C 09/20/20 10:00 Pulse 74 09/20/20 10:00 Resp 17 09/20/20 10:00 BP 110/73 09/20/20 10:00 Pulse Ox 96 09/20/20 10:00
--- NOTE | 2020-09-27 07:32 | PCM.OPNOTE ---
- General Post-Op/Procedure Note Date of Surgery/Procedure: 09/20/20 Operative Procedure(s): right carpal tunnel release Pre Op Diagnosis: right median nerve compression neuropathy Post-Op Diagnosis: Same Anesthesia Technique: Local, MAC Primary Surgeon: Guanako Monsalve Anesthesia Provider: Ashia Braga Gas Plant Operator: Zeinab Rebolledo EBL in mLs: 5 Complications: None Condition: Good
--- NOTE | 2020-09-27 07:55 | OR ---
DATE OF OPERATION: 09/20/2020 SURGEON: Guanako Monsalve MD OPERATION PERFORMED: Right carpal tunnel release. PREOPERATIVE DIAGNOSIS: Right median nerve compression neuropathy. POSTOPERATIVE DIAGNOSIS: Right median nerve compression neuropathy. ANESTHESIA: Local MAC. ANESTHESIA PROVIDER: Kelli Gonzales CLAM PICKER: Zeinab Rebolledo PA-C ESTIMATED BLOOD LOSS: Less than 5 mL. COMPLICATIONS: None. CONDITION: Stable. DESCRIPTION OF PROCEDURE: The patient was identified in the preop holding area. Proper site was marked and identified by the surgeon. The patient was taken back to the operating theater where after adequate anesthesia, the patient's right upper extremity was sterilely prepped and draped in the usual sterile fashion. OR time-out was performed. The patient did not receive antibiotics and it is not indicated for soft tissue hand procedure. At this time, the right upper extremity was exsanguinated and an Esmarch was used as a tourniquet on the forearm. At this time, using 1% lidocaine without epinephrine and 0.25% Marcaine without epinephrine, the palmar cutaneous branch of the median nerve was anesthetized and then the incisional site was anesthetized using [place] cardinal line and ulnar border of the fourth digit as reference. Once this had set up, an incision was made. Blunt dissection was taken down to the palmar cutaneous fascia. Palmar cutaneous fascia was incised with a [place] blade. At this time, the transverse carpal ligament was identified. A small rent was made in the transverse carpal ligament with a [place] blade under direct visualization. Resection of the transverse carpal ligament was done distally using tenotomy scissors making sure to stop short of the palmar arch. At this time, attention was turned proximally after it was found to be adequately released. Using the tenotomy scissors keeping the tips ulnar to protect the palmar cutaneous branch of the median nerve, the superficial forearm fascia as well as the transverse carpal ligament were resected proximally. It was found to be adequate release both proximally and distally. At this time, adequate saline was irrigated through the wound. 4-0 nylon sutures were used closure of the skin. The patient was placed in a sterile soft dressing and sent to PACU in stable condition. MMODAL /[id number]
== END 2020-09-20 10:12 | disposition home or self-care (01) ==
LOC: JD.SDS 08:22
PROVIDERS: ATTEND Orthopaedic Surgery
DX: G56.11 Other lesions of median nerve, right upper limb (principal); G56.03 Carpal tunnel syndrome, bilateral upper limbs; F41.9 Anxiety disorder, unspecified; J45.909 Unspecified asthma, uncomplicated; E66.01 Morbid (severe) obesity due to excess calories; Z88.8 Allergy status to other drugs, medicaments and biological substances; Z91.013 Allergy to seafood; Z79.899 Other long term (current) drug therapy; Z90.49 Acquired absence of other specified parts of digestive tract; Z98.890 Other specified postprocedural states; Z68.41 Body mass index [BMI] 40.0-44.9, adult
CPT/HCPCS: 64721; 81025; J1885; J2001; J2250; J2405; J2704; J3010; J3490; J7120; 01810

== ENCOUNTER 2021-06-10 16:34 | Emergency (ER) | payer BC ==
[2021-06-10 16:52] VITALS: BP 134/75; PULSE 95
--- NOTE | 2021-06-10 18:11 | EDM.PDOC ---
ED HPI GENERAL MEDICAL PROBLEM - General Chief Complaint: Respiratory Problem Stated Complaint: covid+ headache chills diarrhea Time Seen by Provider: 06/10/21 17:32 Source of Information: Reports: Patient History Limitations: Reports: No Limitations, Other (ED vital signs reveal a temp of 98.2, pulse of 95, respiratory rate of 16, blood pressure 134/75, pulse ox 99% on room air) - History of Present Illness INITIAL COMMENTS - FREE TEXT/NARRATIVE: 36-year-old female presents the emergency department with complaints of Covid type symptoms. The patient states that her tested positive for Covid yesterday. She developed symptoms of headache, cough, body aches, fever and chills 2 days ago. She states that this has progressed into nausea, decreased appetite and shortness of breath. She also complains of excessive thirst and states that when she tries to drink large amounts of water she becomes very nauseated. Patient states she is otherwise healthy. She does not take any prescription medications. She does not smoke. - Related Data Allergies Allergy/AdvReac Type Severity Reaction Status Date / Time adhesive Allergy Rash Verified 06/10/21 16:52 alcohol Allergy Rash Verified 06/10/21 16:52 [From Mastisol Adhesive] gum mastic Allergy Rash Verified 06/10/21 16:52 [From Mastisol Adhesive] methyl salicylate Allergy Rash Verified 06/10/21 16:52 [From Mastisol Adhesive] shellfish derived Allergy Anaphylactic Verified 06/10/21 16:52 Shock storax Allergy Rash Verified 06/10/21 16:52 [From Mastisol Adhesive] Home Meds: Home Meds PNV No.66/Iron,Carbonyl/FA/DHA [R- Ob Softgel] 1 tab PO DAILY 08/19/14 [History] Lactobacillus Combo No.10 [Probiotic] 1 cap PO DAILY 08/22/20 [History] Sertraline HCl [Zoloft] 100 mg PO DAILY 08/22/20 [History] Ibuprofen 600 mg PO TID PRN #10 tablet 08/23/20 [Rx] Ondansetron [Zofran ODT] 4 mg PO Q6H PRN #12 tab.dis 06/10/21 [Rx] dexAMETHasone [Dexamethasone] 6 mg PO DAILY #15 tab 06/10/21 [Rx] Past Medical History HEENT History: Reports: Impaired Vision Other HEENT History: Wears glasses Cardiovascular History: Reports: None Respiratory History: Reports: Asthma, Other (See Below) Other Respiratory History: resolved at this time. 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 TEACHER History: breast lump, amniotic fluid leaking, breast pain, , dysmenorrhea, placenta previa Musculoskeletal History: Reports: Arthritis, Back Pain, Chronic Neurological History: Reports: None Psychiatric History: Reports: Anxiety Endocrine/Metabolic History: Reports: Obesity/BMI 30+ Other Endocrine/Metabolic History: low serum progesterone Hematologic History: Reports: None Immunologic History: Reports: None Oncologic (Cancer) History: Reports: Basal Cell Carcinoma Dermatologic History: Reports: Melanoma - Infectious Disease History Infectious Disease History: Reports: Chicken Pox, Novel Coronavirus - Past Surgical History Head Surgeries/Procedures: Reports: None HEENT Surgical History: Reports: Oral Surgery, Other (See Below) Other HEENT Surgeries/Procedures: wisdom teeth removed 1999 Cardiovascular Surgical History: Reports: None Respiratory Surgical History: Reports: None GI Surgical History: Reports: Cholecystectomy Other GI Surgeries/Procedures: 04/2016 Female Surgical History: Reports: None Endocrine Surgical History: Reports: None Neurological Surgical History: Reports: None Musculoskeletal Surgical History: Reports: None Oncologic Surgical History: Reports: None Dermatological Surgical History: Reports: None Social & Family History - Family History Family Medical History: No Pertinent Family History - Tobacco Use Tobacco Use Status *Q: Never Tobacco User Second Hand Smoke Exposure: No - Caffeine Use Caffeine Use: Reports: Coffee, Soda Other Caffeine Use: average 1 caffeinated beverage per day - Recreational Drug Use Recreational Drug Use: No ED ROS GENERAL - Review of Systems Review Of Systems: Comprehensive ROS is negative, except as noted in HPI. ED EXAM, GENERAL - Physical Exam Exam: See Below Exam Limited By: No Limitations General Appearance: Alert, WD/WN, Mild Distress Ears: Normal External Exam, Hearing Grossly Normal Nose: Normal Inspection Throat/Mouth: Normal Inspection, Normal Lips, Normal Voice, No Airway Compromise Head: Atraumatic Neck: Normal Inspection, Supple Respiratory/Chest: No Respiratory Distress, Lungs Clear, Normal Breath Sounds, No Accessory Muscle Use, Chest Non-Tender Cardiovascular: Normal Peripheral Pulses, Regular Rate, Rhythm, No Edema, No Murmur Peripheral Pulses: 2+: Radial (L), Radial (R) GI/Abdominal: Normal Bowel Sounds, Soft, Non-Tender, No Distention (Female) Exam: Deferred Rectal (Female) Exam: Deferred Back Exam: Normal Inspection Extremities: Normal Inspection Neurological: Alert, Oriented, Normal Cognition Psychiatric: Normal Affect Skin Exam: Dry, Intact, Normal Color, No Rash. No: Warm (Skin is hot to touch) Lymphatic: No Adenopathy Course - Vital Signs Text/Narrative:: As stated above, patient presents with Covid type symptoms. Patient's was diagnosed 2 days ago. Upon assessment, the patient is awake and alert however she does not appear to be feeling well. Complains of nausea. Her skin is hot to touch. Lung sounds are clear to auscultation. Will order a Covid swab and a portable chest x-ray. Last Recorded V/S: Last Vital Signs Temp 98.2 F 06/10/21 16:50 Pulse 95 06/10/21 16:50 Resp 16 06/10/21 16:50 BP 134/75 06/10/21 16:50 Pulse Ox 99 06/10/21 16:50 - Orders/Labs/Meds Orders: Active Orders 24 hr Category Date Time Status Chest 1V Frontal [CR] Stat Exams 06/10/21 18:15 Taken Labs: Laboratory Tests 06/10/21 Range/Units 16:57 SARS-CoV-2 RNA ([facility]) Positive H (NEGATIVE) Meds: Medications Discontinued Medications Generic Name Dose Route Start Last Admin Trade Name Susan PRN Reason Stop Dose Admin Acetaminophen 650 mg 06/10/21 18:49 06/10/21 19:03 Acetaminophen 325 Mg Tab PO 06/10/21 18:50 650 mg NOW ONE Administration Dexamethasone 6 mg 06/10/21 18:49 06/10/21 19:04 Dexamethasone 4 Mg Tab PO 06/10/21 18:50 6 mg ONETIME ONE Administration Ondansetron HCl 4 mg 06/10/21 18:49 06/10/21 19:03 Ondansetron 4 Mg Tab.Dis PO 06/10/21 18:50 4 mg ONETIME ONE Administration - Re-Assessments/Exams Free Text/Narrative Re-Assessment/Exam: 06/10/21 19:18 Patient's Covid swab comes back positive Nothing acute is appreciated on portable view of the chest. Formal radiologist report is pending. I have ordered for the patient to receive Tylenol 650 mg as her skin is hot to touch. We will give her Zofran 4 mg ODT and dexamethasone 6 mg p.o. she will be discharged home with a prescription for Zofran and dexamethasone for 10 days. 06/10/21 19:20 Neurologist impression portable view of the chest: 1. Nothing acute is seen on portable chest x-ray. Departure - Departure Time of Disposition: 19:20 Disposition: Home, Self-Care 01 Condition: Good Clinical Impression: COVID-19 - Discharge Information Prescriptions: dexAMETHasone [Dexamethasone] 6 mg PO DAILY #15 tab Ondansetron [Zofran ODT] 4 mg PO Q6H PRN #12 tab.dis PRN Reason: Nausea/Vomiting Instructions: COVID-19: What to Do if You Are Sick - [facility] (10/11/2020) Referrals: PCP,None [Primary Care Provider] - Forms: ED Department Discharge Additional Instructions: You were seen in the emergency department today with Covid type symptoms. Covid swab was completed and this is positive. Chest x-ray was completed which did not show any signs of pneumonia at this time. While in the emergency department you did receive Tylenol for fever. Recommend that you continue taking this every 4 hours as needed for fever or body aches. You also received dexamethasone, a steroid medication, while in the emergency department. I have sent prescription to your pharmacy for dexamethasone to be taken 1 time daily. You will take 1-1/2 tabs for 10 days. I have also also sent a prescription for nausea medication called Zofran to your pharmacy. You can take 1 tab every 6 hours as needed to prevent nausea and vomiting. Please allow 30 minutes prior to eating or drinking for the medication to take full effect. Try not to take any ibuprofen while taking the dexamethasone as it can make you more prone to a stomach ulcer. Sepsis Event Note (ED) - Evaluation Sepsis Screening Result: No Definite Risk - Focused Exam Vital Signs: Vital Signs Temp Pulse Resp BP Pulse Ox 06/10/21 16:50 98.2 F 95 16 134/75 99 - My Orders Last 24 Hours: My Active Orders 06/10/21 18:15 Chest 1V Frontal [CR] Stat - Assessment/Plan Last 24 Hours: My Active Orders 06/10/21 18:15 Chest 1V Frontal [CR] Stat
[2021-06-10] MEDS ORDERED: Acetaminophen 325 MG Tab PO ONE (18:49)
[2021-06-10] MEDS ORDERED: Dexamethasone 4 MG Tab PO ONE (18:49)
[2021-06-10] MEDS ORDERED: Ondansetron 4 MG Tab.DIS PO ONE (18:49)
--- NOTE | 2021-06-10 19:19 | CR ---
Chest: Portable view of the chest was obtained. Comparison: No prior chest x-ray is available. Heart size and mediastinum are within normal limits. Lungs are clear with no acute parenchymal change. No acute osseous abnormality is appreciated. Impression: 1. Nothing acute is seen on portable chest x-ray. Diagnostic code #1
== END 2021-06-10 19:54 | disposition home or self-care (01) ==
LOC: JD.ED 16:34
DX: U07.1 COVID-19 (principal); E66.9 Obesity, unspecified; Z68.41 Body mass index [BMI] 40.0-44.9, adult; Z91.048 Other nonmedicinal substance allergy status; Z91.013 Allergy to seafood
CPT/HCPCS: 71045; 87635; 99285; A9270; J8540; 99283; U0002

== ENCOUNTER 2022-12-01 09:30 | Inpatient (IN) | payer BC ==
[2022-12-01] MEDS ORDERED: Acetaminophen 325 MG Tab PO PRN ×2 (09:32→18:14)
[2022-12-01] MEDS ORDERED: Nalbuphine 10 MG/0.5 ML Syringe IVPUSH PRN (09:32)
[2022-12-01] MEDS ORDERED: Lidocaine 1% 50 ML MDV INJECT ONE (09:32)
[2022-12-01] MEDS ORDERED: Ondansetron 4 MG/2 ML SDV IVPUSH PRN (09:32)
[2022-12-01] MEDS: Lactated Ringers 1,000 ML IV SCH ×2 (09:45→11:44)
[2022-12-01] MEDS ORDERED: Oxytocin/Lactated Ringers 10 UNIT/1,000 ML BAG IV SCH (09:45)
[2022-12-01] MEDS ORDERED: diphenhydrAMINE 50 MG/ML SDV IVPUSH PRN (10:20)
[2022-12-01] MEDS ORDERED: Bupivacaine/fentaNYL/NS 100 ML Bag EPIDUR PRN (10:20)
[2022-12-01] MEDS ORDERED: ePHEDrine 50 MG/ML SDV IVPUSH PRN (10:20)
[2022-12-01] MEDS ORDERED: fentaNYL 100 MCG/2 ML SDV EPIDUR PRN (10:20)
[2022-12-01] MEDS ORDERED: Ropivacaine 0.2% PF 2 MG/ML 20 ML SDV ONE (18:00)
[2022-12-01] MEDS ORDERED: Benzocaine/Menthol 20%-0.5% Spray 78 GM Cannister TOP PRN (18:14)
[2022-12-01] MEDS ORDERED: Witch Hazel Medicated Pads 40/Jar TOP PRN (18:14)
[2022-12-01] MEDS ORDERED: Docusate Sodium 100 MG Cap PO PRN (18:14)
[2022-12-01] MEDS: Ibuprofen 600 MG Tab PO PRN (18:50)
[2022-12-02] MEDS: Ibuprofen 600 MG Tab PO PRN ×3 (00:02→14:58)
[2022-12-02] MEDS ORDERED: Prenatal Multivitamin with Calcium/Folic Acid/Iron Tab PO SCH (09:00)
[2022-12-02] MEDS ORDERED: Sertraline 50 MG Tab PO SCH (09:00)
[2022-12-02 17:05] VITALS: BP 136/89; PULSE 80
== END 2022-12-02 19:40 | disposition home or self-care (01) | DRG 560 ==
LOC: JD.OBCHECK 09:30 → JD.OB 09:32 → JD.OBCHECK 09:34 → JD.OB 09:35 → OBSVTOIN 15:34 → JD.OB 15:35
PROVIDERS: ADMIT Obstetrics & Gynecology; ATTEND Obstetrics & Gynecology
PROC: 10E0XZZ Delivery of Products of Conception, External Approach (ICD-10-PCS; principal; 2022-12-01)
PROC: 0HQ9XZZ Repair Perineum Skin, External Approach (ICD-10-PCS; 2022-12-01)
PROC: 3E0R3BZ Introduction of Anesthetic Agent into Spinal Canal, Percutaneous Approach (ICD-10-PCS; 2022-12-01)
PROC: 00HU33Z Insertion of Infusion Device into Spinal Canal, Percutaneous Approach (ICD-10-PCS; 2022-12-01)
PROC: 10907ZC Drainage of Amniotic Fluid, Therapeutic from Products of Conception, Via Natural or Artificial Opening (ICD-10-PCS; 2022-12-01)
DX: O99.214 Obesity complicating childbirth (principal); O99.344 Other mental disorders complicating childbirth; Z37.0 Single live birth; Z3A.37 37 weeks gestation of pregnancy; F41.9 Anxiety disorder, unspecified; O69.81X0 Labor and delivery complicated by cord around neck, without compression, not applicable or unspecified; O70.0 First degree perineal laceration during delivery; Z88.8 Allergy status to other drugs, medicaments and biological substances; Z91.013 Allergy to seafood; Z90.49 Acquired absence of other specified parts of digestive tract; Z98.890 Other specified postprocedural states; Z85.89 Personal history of malignant neoplasm of other organs and systems
CPT/HCPCS: 01967; 36415; 51702; 59025; 59409; 85025; 86592; A9270-GY; J2590; J2795; J7120

== ENCOUNTER 2023-10-10 09:01 | Emergency (ER) | payer BC ==
[2023-10-10] MEDS ORDERED: Sodium Chloride 0.9% 10 ML Syringe FLUSH PRN (09:13)
[2023-10-10] MEDS ORDERED: Ketorolac 30 MG/ML SDV IVPUSH ONE (09:18)
[2023-10-10] MEDS ORDERED: Sodium Chloride 0.9% 1,000 ML IV ONE (09:18)
[2023-10-10 09:39] LABS: BASOPHILS PERCENT AUTO 0.6 % (0.0-1.0); EOSINOPHILS ABSOLUTE AUTO 0.1 K/mm3 (0.0-0.4); EOSINOPHILS PERCENT AUTO 0.8 % (0.0-6.0); HEMATOCRIT 43.4 % (37.0-47.0); HEMOGLOBIN 14.3 gm/dl (12.0-16.0); IMMATURE GRAN ABSOLUTE AUTO 0.02 K/mm3 (0.00-0.05); IMMATURE GRAN PERCENT AUTO 0.3 % (0.0-0.4); LYMPHOCYTES ABSOLUTE AUTO 1.7 K/mm3 (1.0-4.8); LYMPHOCYTES PERCENT AUTO 23.3 % (24.0-44.0); MEAN CORPUSCULAR HEMOGLOBIN 28.6 pg (28.0-32.0); MEAN CORPUSCULAR HGB CONC 32.9 g/dl (32.0-36.0); MEAN CORPUSCULAR VOLUME 86.8 fl (83.0-99.0); MEAN PLATELET VOLUME 10.3 fl (9.4-12.3); MONOCYTES ABSOLUTE AUTO 0.5 K/mm3 (0.0-0.8); MONOCYTES PERCENT AUTO 7.3 % (0.0-8.0); NEUTROPHILS ABSOLUTE AUTO 4.9 K/mm3 (1.8-7.7); NEUTROPHILS PERCENT AUTO 67.7 % (41.0-71.0); PLATELET COUNT,PLT 242 K/mm3 (150-400); WHITE BLOOD CELL COUNT,WBC 7.16 K/mm3 (3.9-11.3)
[2023-10-10 10:06] LABS: A/G RATIO 0.9 (1-2); ALBUMIN 3.7 g/dl (3.4-5.0); ANION GAP 11.5 (5-15); BILIRUBIN TOTAL 0.8 mg/dL (0.2-1.0); CALCIUM 8.9 mg/dL (8.5-10.1); EST CRCL DRUG DOSING (CG) 65.22 mL/min; MAGNESIUM 1.9 mg/dL (1.8-2.4); POTASSIUM,K 3.5 mEq/L (3.5-5.1); PROTEIN TOTAL,TP 7.8 g/dl (6.4-8.2)
[2023-10-10 10:25] LABS: APPEARANCE,URINE CLEAR (Clear); BILIRUBIN,URINE 1+ (Negative); COLOR,URINE YELLOW (Yellow); GLUCOSE,URINE NEGATIVE (Negative); KETONES,URINE TRACE (Negative); LEUKOCYTE ESTERASE,URINE NEGATIVE (Negative); NITRITE,URINE NEGATIVE (Negative); OCCULT BLOOD,URINE NEGATIVE (Negative); PH,URINE 5.5 (5.0-8.0); PROTEIN,URINE NEGATIVE (Negative); UROBILINOGEN,URINE 0.2 (0.2-1.0)
[2023-10-10 10:36] LABS: BACTERIA,URINE MODERATE /hpf (FEW); HYALINE CASTS,URINE 0-5 /lpf (0-5); MUCUS,URINE MANY /hpf (FEW); RBC,URINE 0-5 /hpf (0-5); SQUAMOUS EPITHELIAL CELLS,UR 0-5 /hpf (0-5)
[2023-10-10] MEDS ORDERED: cefTRIAXone 1 GM in Sodium Chloride 0.9% 100 ML IV ONE (10:39)
[2023-10-10 11:24] VITALS: BP 107/82; PULSE 86
== END 2023-10-10 11:20 | disposition home or self-care (01) ==
LOC: JD.ED 09:01
DX: N23 Unspecified renal colic (principal); N30.00 Acute cystitis without hematuria; J45.909 Unspecified asthma, uncomplicated; E66.9 Obesity, unspecified; Z68.41 Body mass index [BMI] 40.0-44.9, adult; Z79.899 Other long term (current) drug therapy; Z91.048 Other nonmedicinal substance allergy status
CPT/HCPCS: 36415; 80053; 81001; 83735; 85025; 96361; 96365; 96375; 99284; J0696; J1885; J3490; J7030